=== PATIENT | female | born 1995 | race Caucasian/White ===

== ENCOUNTER 2024-03-21 07:49 | Outpatient (CLI) | payer MEDICAID, SELFPAY | END 2024-03-21 07:50 | disposition home or self-care (01) | PROVIDERS: Visit Provider Surgery | DX: L89.324 Pressure ulcer of left buttock, stage 4 (principal); L89.314 Pressure ulcer of right buttock, stage 4; Q05.4 Unspecified spina bifida with hydrocephalus; G82.50 Quadriplegia, unspecified; K59.2 Neurogenic bowel, not elsewhere classified; N31.8 Other neuromuscular dysfunction of bladder; Z93.3 Colostomy status; Z93.0 Tracheostomy status | CPT/HCPCS: 11042; 11045; G0463 ==

== ENCOUNTER 2024-03-28 08:09 | Outpatient (CLI) | payer MEDICAID, SELFPAY | END 2024-03-28 08:10 | disposition home or self-care (01) | LOC: WOUND 08:09 | PROVIDERS: Visit Provider Surgery | DX: L89.324 Pressure ulcer of left buttock, stage 4 (principal); L89.314 Pressure ulcer of right buttock, stage 4; Q05.4 Unspecified spina bifida with hydrocephalus; G82.20 Paraplegia, unspecified | CPT/HCPCS: 11042; 11045; G0463 ==

== ENCOUNTER 2024-04-11 08:20 | Outpatient (CLI) | payer MEDICAID, SELFPAY | END 2024-04-11 08:21 | disposition home or self-care (01) | PROVIDERS: Visit Provider Surgery | DX: L89.324 Pressure ulcer of left buttock, stage 4 (principal); L89.314 Pressure ulcer of right buttock, stage 4; Q05.4 Unspecified spina bifida with hydrocephalus; G82.20 Paraplegia, unspecified | CPT/HCPCS: 97597; 97598 ==

== ENCOUNTER 2024-04-25 08:07 | Outpatient (CLI) | payer MEDICAID, SELFPAY | END 2024-04-25 08:08 | disposition home or self-care (01) | LOC: WOUND 08:07 | PROVIDERS: Visit Provider Surgery | DX: L89.324 Pressure ulcer of left buttock, stage 4 (principal); L89.314 Pressure ulcer of right buttock, stage 4; Q05.4 Unspecified spina bifida with hydrocephalus; G82.20 Paraplegia, unspecified | CPT/HCPCS: 97597; 97605 ==

== ENCOUNTER 2024-05-02 08:05 | Outpatient (CLI) | payer MEDICAID, SELFPAY | END 2024-05-02 08:06 | disposition home or self-care (01) | LOC: WOUND 08:05 | PROVIDERS: Visit Provider Surgery | DX: L89.314 Pressure ulcer of right buttock, stage 4 (principal); L89.324 Pressure ulcer of left buttock, stage 4; Q05.4 Unspecified spina bifida with hydrocephalus; G82.20 Paraplegia, unspecified | CPT/HCPCS: 97597; 97605 ==

== ENCOUNTER 2024-05-09 08:04 | Outpatient (CLI) | payer MEDICAID, SELFPAY | END 2024-05-09 08:05 | disposition home or self-care (01) | LOC: WOUND 08:04 | PROVIDERS: Visit Provider Surgery | DX: L89.324 Pressure ulcer of left buttock, stage 4 (principal); L89.314 Pressure ulcer of right buttock, stage 4; Q05.4 Unspecified spina bifida with hydrocephalus; G82.20 Paraplegia, unspecified | CPT/HCPCS: 97597; 97605 ==

== ENCOUNTER 2024-05-16 08:20 | Outpatient (CLI) | payer MEDICAID, SELFPAY | END 2024-05-16 08:21 | disposition home or self-care (01) | LOC: WOUND 08:20 | PROVIDERS: Visit Provider Surgery | DX: L89.314 Pressure ulcer of right buttock, stage 4 (principal); L89.324 Pressure ulcer of left buttock, stage 4; Q05.4 Unspecified spina bifida with hydrocephalus; G82.20 Paraplegia, unspecified | CPT/HCPCS: 97597; 97605 ==

== ENCOUNTER 2024-05-23 07:53 | Outpatient (CLI) | payer MEDICAID, SELFPAY | END 2024-05-23 07:54 | disposition home or self-care (01) | PROVIDERS: Visit Provider Surgery | DX: L89.324 Pressure ulcer of left buttock, stage 4 (principal); L89.314 Pressure ulcer of right buttock, stage 4; Q05.4 Unspecified spina bifida with hydrocephalus; G82.20 Paraplegia, unspecified | CPT/HCPCS: 97597; 97605 ==

== ENCOUNTER 2024-05-30 07:47 | Outpatient (CLI) | payer MEDICAID, SELFPAY | END 2024-05-30 07:48 | disposition home or self-care (01) | LOC: WOUND 07:47 | PROVIDERS: Visit Provider Surgery | DX: L89.324 Pressure ulcer of left buttock, stage 4 (principal); L89.314 Pressure ulcer of right buttock, stage 4; Q05.4 Unspecified spina bifida with hydrocephalus; G82.20 Paraplegia, unspecified; Z99.3 Dependence on wheelchair | CPT/HCPCS: 97597; 97598; 97605 ==

== ENCOUNTER 2024-06-06 07:58 | Outpatient (CLI) | payer MEDICAID, SELFPAY | END 2024-06-06 07:59 | disposition home or self-care (01) | LOC: WOUND 07:58 | PROVIDERS: Visit Provider Surgery | DX: L89.324 Pressure ulcer of left buttock, stage 4 (principal); L89.314 Pressure ulcer of right buttock, stage 4; Q05.4 Unspecified spina bifida with hydrocephalus; G82.20 Paraplegia, unspecified; Z99.3 Dependence on wheelchair | CPT/HCPCS: 97597; 97598; 97605 ==

== ENCOUNTER 2024-06-13 07:42 | Outpatient (CLI) | payer MEDICAID, SELFPAY | END 2024-06-13 07:43 | disposition home or self-care (01) | LOC: WOUND 07:42 | PROVIDERS: Visit Provider Surgery | DX: L89.324 Pressure ulcer of left buttock, stage 4 (principal); L89.314 Pressure ulcer of right buttock, stage 4; Q05.4 Unspecified spina bifida with hydrocephalus; G82.20 Paraplegia, unspecified; Z99.3 Dependence on wheelchair | CPT/HCPCS: 97597; 97605 ==

== ENCOUNTER 2024-06-20 07:50 | Outpatient (CLI) | payer MEDICAID, SELFPAY | END 2024-06-20 07:51 | disposition home or self-care (01) | LOC: WOUND 07:50 | PROVIDERS: Visit Provider Surgery | DX: L89.324 Pressure ulcer of left buttock, stage 4 (principal); L89.314 Pressure ulcer of right buttock, stage 4; Q05.4 Unspecified spina bifida with hydrocephalus; G82.20 Paraplegia, unspecified | CPT/HCPCS: 97597; 97605 ==

== ENCOUNTER 2024-06-27 07:56 | Outpatient (CLI) | payer MEDICAID, SELFPAY | END 2024-06-27 07:57 | disposition home or self-care (01) | PROVIDERS: Visit Provider Nurse Practitioner Family | DX: L89.324 Pressure ulcer of left buttock, stage 4 (principal); L89.314 Pressure ulcer of right buttock, stage 4; Q05.4 Unspecified spina bifida with hydrocephalus; G82.20 Paraplegia, unspecified; Z99.3 Dependence on wheelchair | CPT/HCPCS: 11042; 97605; G0463 ==

== ENCOUNTER 2024-07-04 07:44 | Outpatient (CLI) | payer MEDICAID, SELFPAY | END 2024-07-04 07:45 | disposition home or self-care (01) | LOC: WOUND 07:44 | PROVIDERS: Visit Provider Nurse Practitioner Family | DX: L89.314 Pressure ulcer of right buttock, stage 4 (principal); L89.324 Pressure ulcer of left buttock, stage 4; Q05.4 Unspecified spina bifida with hydrocephalus; G82.20 Paraplegia, unspecified; Z99.3 Dependence on wheelchair | CPT/HCPCS: 11042; 97605 ==

== ENCOUNTER 2024-07-11 07:37 | Outpatient (CLI) | payer MEDICAID, SELFPAY | END 2024-07-11 07:38 | disposition home or self-care (01) | LOC: WOUND 07:37 | PROVIDERS: Visit Provider Nurse Practitioner Family | DX: L89.324 Pressure ulcer of left buttock, stage 4 (principal); L89.314 Pressure ulcer of right buttock, stage 4; Q05.4 Unspecified spina bifida with hydrocephalus; G82.20 Paraplegia, unspecified; Z99.3 Dependence on wheelchair | CPT/HCPCS: 11042; 11043; 97605 ==

== ENCOUNTER 2024-07-18 07:42 | Outpatient (CLI) | payer MEDICAID, SELFPAY | END 2024-07-18 07:43 | disposition home or self-care (01) | LOC: WOUND 07:42 | PROVIDERS: Visit Provider Nurse Practitioner Family | DX: L89.324 Pressure ulcer of left buttock, stage 4 (principal); L89.314 Pressure ulcer of right buttock, stage 4; Q05.4 Unspecified spina bifida with hydrocephalus; G82.20 Paraplegia, unspecified; Z99.3 Dependence on wheelchair | CPT/HCPCS: 11042; 97605 ==

== ENCOUNTER 2024-07-25 07:38 | Outpatient (CLI) | payer MEDICAID, SELFPAY | END 2024-07-25 07:39 | disposition home or self-care (01) | LOC: WOUND 07:38 | PROVIDERS: Visit Provider Nurse Practitioner Family | DX: L89.324 Pressure ulcer of left buttock, stage 4 (principal); L89.314 Pressure ulcer of right buttock, stage 4; Q05.4 Unspecified spina bifida with hydrocephalus; G82.20 Paraplegia, unspecified; Z99.3 Dependence on wheelchair | CPT/HCPCS: 11042; 97605 ==

== ENCOUNTER 2024-08-01 08:51 | Outpatient (CLI) | payer MEDICAID, SELFPAY | END 2024-08-01 08:52 | disposition home or self-care (01) | PROVIDERS: Visit Provider Nurse Practitioner Family | DX: L89.324 Pressure ulcer of left buttock, stage 4 (principal); L89.314 Pressure ulcer of right buttock, stage 4; Q05.4 Unspecified spina bifida with hydrocephalus; G82.20 Paraplegia, unspecified; Z99.3 Dependence on wheelchair | CPT/HCPCS: 11043; 15271; 97605; Q4151 ==

== ENCOUNTER 2024-08-08 07:47 | Outpatient (CLI) | payer MEDICAID, SELFPAY | END 2024-08-08 07:48 | disposition home or self-care (01) | LOC: WOUND 07:48 | PROVIDERS: Visit Provider Nurse Practitioner Family | DX: L89.324 Pressure ulcer of left buttock, stage 4 (principal); L89.314 Pressure ulcer of right buttock, stage 4; Q05.4 Unspecified spina bifida with hydrocephalus; G82.20 Paraplegia, unspecified; Z99.3 Dependence on wheelchair | CPT/HCPCS: 11042; 15271; 97605; Q4151 ==

== ENCOUNTER 2024-08-17 07:59 | Outpatient (CLI) | payer MEDICAID, SELFPAY | END 2024-08-17 08:00 | disposition home or self-care (01) | LOC: WOUND 07:59 | PROVIDERS: Visit Provider Nurse Practitioner Family | DX: L89.314 Pressure ulcer of right buttock, stage 4 (principal); L89.324 Pressure ulcer of left buttock, stage 4; Q05.4 Unspecified spina bifida with hydrocephalus; G82.20 Paraplegia, unspecified; Z99.3 Dependence on wheelchair | CPT/HCPCS: 11042; 97605 ==

== ENCOUNTER 2024-08-24 07:54 | Outpatient (CLI) | payer BC, MEDICAID, SELFPAY ==
--- OUTSIDE RECORDS SUMMARY | 2024-08-23 16:41 | XMS_ITS | Clinical Summary ---
Author Organization [facility] Address [place], [place] [address] Care Team Providers Care Engine Turner Name Role Phone Sheri Yoo MOTOR AND CHASSIS INSPECTOR Unavailable [phone] Sophia Huertas Primary Care Provider Unavaila ble Allergies Active Allergy Reactions Criticality Noted Date Comments Latex 08/13/2008 Vancomycin *Unknown 02/28/2020 Medications DILANTIN INFATABS 50 MG CHEWABLE 1 tab in am and 2 tabs in evening 0 Active OXYBUTYNIN CHLORIDE 5 MG TAB 1 tab bid 0 Ac tive ALBUTEROL SULFATE 2.5 MG/3 ML NEB SOLUTION None Entered 0 Active VASOTEC 5 MG TAB 1 tab orally daily Active CLONIDINE 0.1 MG TAB 1 tab orally daily Active CIPROFLOXACIN HCL (CIPRO ORAL) Take 1 Tab by mouth 2 times daily. Active multivitamin with iron-mineral tablet ADMINISTER 1 TABLET INTO FEEDING TUBE DAILY 10/12/19 22 Active cefuroxime axetil (CEFTIN) 500 mg tablet PLEASE SEE ATTACHED FOR DETAILED DIRECTIONS 07/10/20 21 Active cetirizine (ZYRTEC) 1 mg/mL solution TAKE 10 ML VIA GASTROSTOMY TUBE DAILY 02/23/20 22 Active ciprofloxacin HCl (CIPRO) 500 mg tablet TAKE 1 TABLET BY MOUTH TWICE DAILY. USE AT FIRST SIGN OF UTI. CALL CLINIC IF INITIATING FOR UA ORDERS 11/15/19 Active cyproheptadine (PERIACTIN) 4 mg tablet ADMINISTER 4 MG INTO FEEDING TUBE THREE TIMES A DAY. 02/24/20 Active erythromycin ethylsuccinate (E.E.S.) 400 mg/5 mL suspension ADMINISTER 2 ML INTO FEEDING TUBE THREE TIMES A DAY. 02/23/20 Active NexIUM Packet 40 mg grps 1 PACKET (40 MG) BY GT ROUTE DAILY. TAKE ACCORDING TO DIRECTIONS ON PACKAGE 01/28/20 Active famotidine (PEPCID) 40 mg/5 mL suspension ADMINISTER 2.5 ML INTO FEEDING TUBE TWO TIMES A DAY. 02/23/20 Active ibuprofen (MOTRIN; ADVIL) 100 mg/5 mL suspension Administer 300 mg through feeding tube every 6 hours if needed. 07/30/20 Active ipratropium (ATROVENT) 0.02 % nebulizer solution 03/09/20 Active ketotifen (ZADITOR) 0.025 % (0.035 %) ophthalmic solution 1 Drop. 06/23/20 Active levalbuterol (XOPENEX) 0.63 mg/3 mL nebulization INHALE 1 AMPULE BY NEBULIZATION EVERY 8 HOURS NEEDED FOR SHORTNESS OF BREATH, DESATURATIONS 02/23/20 Active zinc sulfate 50 mg zinc (220 mg) capsule TAKE 1 CAPSULE INSTRUCTED DAILY. 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 04/29/2022 Impaired mobility and activities of daily living 04/29/2022 Neurogenic bowel 04/29/2022 Neurogenic bladder 04/29/2022 Dysphagia 04/29/2022 Dysarthria 04/29/2022 Paraplegia 04/29/2022 S/P ventriculoperitoneal shunt 03/03/2022 Overview (03/17/2022): 06/02/2000 Medos at 60 04/09/2003 Medos at 60 06/26/2003 Medos at 80 (well decompressed ventricles, increased from 60) 12/2019 Medos to 100 (with revision) Encounters Date Type Department Care Team Description 07/25/2024 Patient Outreach [facility] [address] [place], [place] [id number] Laura Rosado [facility] Care Coordination- [facility] (UTR) 07/25/2024 Patient Outreach [facility] [address] [place] [address] Sheri Yoo, [facility] Care Coordination- [facility] (HRA - Unable to Reach ) 07/04/2024 Patient Outreach [facility] [address] [place] [address] Sheri Yoo, [facility] Care Coordination- [facility] (Call to schedule HRA) from Last 3 Months Immunizations Name Administration Dates Next Due DTP-HIB 05/14/1997,1996,1996 DTaP 06/27/2001 DTaP-HIB (TriHIBIT) 09/04/1997,05/14/1997,1996,1996 Hepatitis B (Peds) 05/14/1997,1996, 996 Inactivated Polio Vaccine 06/27/2001,05/14/1997 Influenza A (H1N1), Inactivated 06/28/2009 Influenza Virus, Unspecified 04/23/2009, 07/19/2008,06/06/2007,09/14/2006, 08/05/1998 Influenza, IIV3 (Age >=3 years) 04/23/20 09,07/19/2008,06/06/2007,09/14/2006, 08/05/1998 MMR 06/27/2001,09/04/1997 Oral Polio Vaccine 1996,1996 Rotavirus Pentavalent (ROTATEQ) 08/05/1998 Rotavirus, Unspecified 08/05/1998 Tdap 04/23/2009 Varicella Vaccine 07/19/2008,06/05/1998 Family History Medical History Relation Name Comments Good Health Father Good Health Mother Relation Name Status Comments Father Mother Social History Tobacco Use Types Packs/Day Years Used Date Smoking Tobacco: Never Smokeless Tobacco: Never Alcohol Use Standard Drinks/Week Comments No 0 (1 standard drink = 0.6 oz pur e alcohol) Social Connections Answer Date Recorded Frequency of Communication with Friends and Fami ly Not on file 03/17/2022 Comments Unknown Sex and Gender Information Value Date Recorded Sex Assigned at Not on file 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 Gender Identity Not on file Sexual Orientation Not on file Obstetrics History Last Filed Vital Signs Vital Sign Reading Time Taken Comments Blood Pressure 105/71 04/29/2022 8:02 AM CDT Pulse 88 04/29/2022 8:02 AM CDT Temperature 36.7 C (98 F) 03/17/2022 1:01 PM CDT Respiratory Rate 22 05/09/2010 9:28 PM CDT Oxygen Saturation 97% 04/29/2022 8:02 AM CDT Inhaled Oxygen Concentration - - Weight 45.4 kg (100 lb) 03/17/2022 1:01 PM CDT Height 152.4 cm (5') 03/17/2022 1:01 PM CDT Body Mass Index 19.53 03/17/2022 1:01 PM CDT Plan of Treatment Health Maintenance Due Date Last Done Comments Depression screening for age 12+ 2008 HIV for age 15-65 2011 Hepatitis C screening for age 18-79 2014 Pap test for age 21-65 2017 Tetanus booster 04/23/2019 04/23/2009 BMI (ht and wt on same day) for age 18+ 03/17/2023 03/17/2022 COVID-19 vaccine series (2023- season) 2024 Influenza for age 9-49 04/22/2024 9, 04/23/2009, 04/23/2009, Additional history exists Tdap Completed 04/23/2009 Pneumococcal series for age 6-49 Aged Out No longer eligible based on patient's age to complete this topic Goals Goal Patient Goal Type Associated Problems Recent Progress Patient-Stated? Author [facility] CC - UTR General No Mahad, [place] Note: Goal Statement: Pham will be offered a health risk assessment as evidenced by documentation of attempted outreach. Start date: 07/22/23 Goal end date: 07/21/24 Goal priority: High Initial contact attempts documented : unsuccessful welcome call documented in note dated 07/18/23 Challenges to goal achievement:No answer, left voicemail requesting return call. Member not responding to calls or correspondence. UTR Actions: Continue attempts to reach member at number of record Outreach done to legal guardian/emergency contact.: Outreach done to both parents who are legal guardian and emergency contacts. Conducted other research (such as Health Plan claims reports, [place] or [place] review): Checked [place] and reviewed Epic records. Primary Care Provider confirmed: Yes Name of PCP: aMttie Huretas MD Provider Engagement Letter sent date: 07/22/23 Sent method: (EMR/mail/fax/n/a) Mail Member Unable to Reach Letter sent date: 07/22/23 Sent method: (EMR/mail/fax/n/a) Mail PLAN: Attempt outreach/engagement in 6 months, Timeline for next outreach scheduled in [facility], and HRA due- administrative activity completed Continue outreach to contact and engage member per health plan requirement. Linda Tobin .................... 07/22/2023 9:52 AM Biannual Review Contact Attempts Date Comments - include contact type Continue attempts to reach member via phone Outreach to legal guardian/emergency contact Outreach to primary care clinic/provider Outreach to pharmacy or other community provider Contacted waiver case finisher Contacted financial worker Conducted other research (such as health plan claims reports, [place]IT[place] or Epic record review) HRA scheduled Updated next outreach date #1 01/12/24 Attempted to reach Pham for biannual outreach and HRA scheduling, but was unsuccessful: Called member: call not answered, left voicemail. Actions Taken/Plan: Await return call and/or continue outreach attempts. Linda Tobin..........01/12/2024 10:31 AM #2 01/17/24 Called and spoke with Pham's mother and legal guardian, Negar today for biannual outreach. Introduced myself and reviewed care coordination program benefits. Member accepted video HRA (was offered but declined in-person HRA). Scheduled as follows: Date/Time: 02/14/24, 9:00 AM Location: Virtual (Teams Video Visit) Other Pertinent Information (if applicable): Parents, Negar and Mauro Kuo are legal guardians. HRA will be completed with Negar, , [email or web address]. Negar works until 5 pm, will make this day and time work. Appointment Added to Assignment Workbook (Care Guides only): Yes Actions Taken/Plan: Provided CG's contact information. Confirmed member's contact and demographic information. For new members: Informed member/guardian that assigned CC will be making introduction/HRA confirmation call. Initiated, reviewed, & updated [facility] chart. Added entry to [facility] monthly activity log. Linda Mahad..........01/17/2024 4:19 PM #3 02/14/2024 Prepared and sent UTR and change in CC letter to member and her mother/guardian. Sent provider engagement letter to PCP BEN Soto .................... 02/14/2024 9:20 AM #4 07/25/2024 Remains unable to reach BEN Soto .................... 07/25/2024 11:[address] [place] [address] Care Teams Engine Turner Relationship Specialty Start Date End Date Sophia Huertas PCP - General Family Practice 02/14/24 Sheri Yoo LSW [address], [place] [id number] [facility] Coordination Clinical Research Monitor 01/24/24
--- OUTSIDE RECORDS SUMMARY | 2024-08-23 16:41 | XMS_ITS | Encounter Summary ---
Author Organization [employer] Address [address] [place] [address] Care Team Providers Care Director Of Collections Name Role Phone Mattie Huertas MD Primary Care Provider Reason for Visit * Reason Comments Refill zinc sulfate (ZINCAT E) 220 (50 Zn) MG capsule [Pharmacy Med Name: ZINC SULFATE 220 MG CAPSULE]; DILANTIN-125 125 MG/5ML suspension [Pharmacy Med Name: DILANTIN 125 MG/5 ML SUSP] Encounter Details Date Type Department Care Team (Late st Contact Info) Description 08/01/2024 Refill [facility] [address] [facility] [place] [address] Mattie Huertas MD [address] [facility] [address] Refill (zinc sulfate (ZINCATE) 220 (50 Zn) MG capsule [Pharmacy Med Name: ZINC SULFATE 220 MG CAPSULE]; DILANTIN-125 125 MG/5ML suspension [Pharmacy Med Name: DILANTIN 125 MG/5 ML SUSP]) Social History Tobacco Use Types Packs/Day Years Used Date Smoking Tobacco: Never Smokeless Tobacco: Never Alcohol Use Standard Drinks/Week Comments Never 0 (1 standard drink = 0.6 oz pur e alcohol) Sex and Gender Information Value Date Recorded Sex Assigned at Not on file Gender Identity Not on file Sexual Orientation Not on file documented as of this encounter Nursing Notes * Mattie Huertas MD - 08/03/2024 10:40 AM CST Please call and let patient know that approval was sent but appointment is needed before additionalrefills. TH EDUCATION DIRECTOR * Tish Blancas RN - 08/03/2024 9:13 AM CST Further Assistance Needed on Refill from Clinician RN reviewed. Patient due for Lab(s). Review pended order for accuracy and sign if appropriate, Clinician to order lab(s) and document ifpatient is due for lab only visit or office visit and lab, and Route to Front Line to schedule appointment Requested Prescriptions Pending Prescriptions Disp Refills zinc sulfate (ZINCATE) 220 (50 Zn) MG capsule [Pharmacy Med Name: ZINC SULFATE 220 MG CAPSULE] 90 Capsule 0 Sig: Take 1 Capsule (220 mg) as instructed daily. DILANTIN-125 125 MG/5ML suspension [Pharmacy Med Name: DILANTIN 125 MG/5 ML SUSP] 240 mL Sig: TAKE 2-4 ML BY MOUTH TWICE A DAY TH EDUCATION DIRECTOR documented in this encounter Plan of Treatment Upcoming Encounters Date Type Department Care Team (Late st Contact Info) Description 09/06/2024 12:30 PM HEALTH EDUCATION DIRECTOR Telemedicine [facility] [address] [place] [address] [place] [phone] Mattie Huertas MD [address] [place] [address] [place] [phone] documented as of this encounter Visit Diagnoses Not on filedocumented in this encounter Care Teams Director Of Collections Relationship Specialty Start Date End Date Mattie Huertas MD [facility] [address] [id number] PCP - General Family Practice 07/04/23 documented as of this encounter
--- OUTSIDE RECORDS SUMMARY | 2024-08-23 16:41 | XMS_ITS | Clinical Summary ---
[facility] Address [address] [place] [address] Care Team Providers Care Electrical Controls Engineer Name Role Phone Mattie Huertas MD Primary Care Provider [phone] Source Comments You are receiving this document as you are listed as the primary care provider,follow-up provider, or the patient has been referred to you for consultation.This is in compliance with the Medicare and[facility] EHR Incentive Program,which states Providers who transition their patient to another setting of careor provider of care or refers their patient to another provider of care shouldprovide summary care record for each transition of care or referral. SCHEDit Allergies Active Allergy Reactions Criticality Noted Date Comments Latex 02/06/2011 PN: Converted from LW Latex Sensitivity Flag Review Contrast Media 09/06/2007 PN: LW CM1: >>> NO CONTRAST ADVERSE REACTION <<< Reaction : Review Food Intolerance 09/06/2007 PN: LW FI1: NKA Vancomycin 02/28/2020 Medications Medication Sig Dispensed Refills Start Date End Date Status DRUG NOT IN COMPUTER LW Comment:60cc syringes catheter tip LW Addl Instr:these must fit catheters that have a cath tip or funnel tip 11 0 Active drug not in computer Pneumatic compression device bilateral LE 1 Each 9 Active Acidophilus Lactobacillus CAPS 1 Capsule by Gastric Tube route two times a day. 60 Capsule 5 0 Active ibuprofen (ADVIL) 100 MG/5ML suspension Administer 15 mL into feeding tube every 6 hours as needed for Pain or Fever. Not to exceed 4 doses in 24 hours 118 mL 11 0 Active Nutritional Supplements (FIBERSOURCE HN) 5 cans daily via GT. 100 ml an hour 300 Each 4 3 Active famotidine (PEPCID) 40 MG/5ML suspensionIndicati ons:Gastroesophage al reflux disease, unspecified whether esophagitis present,Gastrostom y tube dependent (HRC) Administer 2.5 mL (20 mg) into feeding tube two times a day. 450 mL 3 3 Active ipratropium (ATROVENT) 0.02 % nebulizer solutionIndication s:Chronic respiratory failure with hypoxia and hypercapnia (HRC) Inhale 2.5 mL (0.5 mg) every 4 hours as needed for Wheezing. 360 Each 3 3 Active oxyBUTYnin (DITROPAN) 5 MG tabletIndications: Neurogenic bladder Take 2 Tablets (10 mg) by mouth two times a day. 360 Tablet 3 3 Active nystatin (MYCOSTATIN) 797070 UNIT/GM powderIndications: Paraplegia (HRC) Apply 0.0001 g (1 Units) topically daily. 60 g 1 3 Active Multiple Vitamin (DAILY-SARAVANAN MULTIVITAMIN) TABS ADMINISTER 1 TABLET INTO FEEDING TUBE DAILY 90 Tablet 3 4 Active LORATADINE CHILDRENS 5 MG/5ML oral solutionIndication s:Chronic respiratory failure with hypoxia and hypercapnia (HRC) ADMINISTER 10 ML (10 MG) INTO FEEDING TUBE DAILY. 900 mL 2 4 Active albuterol 5 mg/mL, 0.5%, (PROVENTIL) (5 MG/ML) 0.5% nebulizer solution Inhale 0.5 mL (2.5 mg) every 4 hours as needed for Wheezing. 80 mL 4 Active levalbuterol (XOPENEX) 0.63 MG/3ML nebulizer solutionIndication s:Chronic respiratory failure with hypoxia and hypercapnia (HRC) Inhale 3 mL (0.63 mg) every 8 hours as needed for Wheezing. 270 mL 10/21/202 4 Active albuterol 2.5 mg/3 mL, 0.083%, (PROVENTIL) nebulizer solution 1 Each (2.5 mg) by Nebulization route every 6 hours as needed for Wheezing. 90 mL 1 4 Active albuterol 2.5 mg/3 mL, 0.083%, (PROVENTIL) nebulizer solutionIndication s:Chronic respiratory failure with hypoxia (HRC) 1 Each (2.5 mg) by Nebulization route daily as needed for Wheezing or Other. Up to 6 doses daily. 540 mL 1 4 Active DILANTIN-125 125 MG/5ML suspension TAKE 2-4 ML BY MOUTH TWICE A DAY 240 mL 4 Active zinc sulfate (ZINCATE) 220 (50 Zn) MG capsule TAKE 1 CAPSULE (220 MG) INSTRUCTED DAILY. 90 Capsule 4 Active esomeprazole (NEXIUM) 40 MG packetIndications: Gastroesophageal reflux disease, unspecified whether esophagitis present 1 PACKET (40 MG) BY GT ROUTE TWO TIMES A DAY. 180 Packet 4 Active cyproheptadine (PERIACTIN) 4 MG tablet ADMINISTER 4 MG INTO FEEDING TUBE THREE TIMES A DAY. 270 Tablet 3 4 Active ciprofloxacin (CIPRO) 500 MG tabletIndications: Neurogenic bladder GIVE 1 TABLET (500 MG) VIA FEEDING TUBE TWO TIMES A DAY. START AT FIRST SIGN OF UTI 20 Tablet 1 4 Active cefuroxime (CEFTIN) 500 MG tabletIndications: Chronic respiratory failure with hypoxia and hypercapnia (HRC) GIVE 1 TABLET VIA FEEDING TUBE TWO TIMES A DAY. INITIATE AT FIRST SIGN OF A RESPIRATORY INFECTION AND CALL CLINIC IF NEED TO INITIATE 20 Tablet 1 4 Active cefuroxime (CEFTIN) 500 MG tabletIndications: Chronic respiratory failure with hypoxia and hypercapnia (HRC) Administer 1 Tablet (500 mg) into feeding tube two times a day. TAKE 1 TAB 2 TIMES A DAY. INITIATE AT FIRST SIGN OF A RESPIRATORY INFECTION AND CALL CLINIC IF NEED TO INITIATE 20 Tablet 1 3 08/21/20 24 Discontinued ciprofloxacin (CIPRO) 500 MG tabletIndications: Neurogenic bladder Administer 1 Tablet (500 mg) into feeding tube two times a day. TAKE 1 TABLET TWICE DAILY AT FIRST SIGN OF UTI 20 Tablet 1 3 08/21/20 24 Discontinued cyproheptadine (PERIACTIN) 4 MG tabletIndications: Spina bifida with hydrocephalus, lumbar region (HRC) Administer 4 mg into feeding tube three times a day. 270 Tablet 3 3 08/01/20 24 Discontinued DILANTIN 125 MG/5ML suspensionIndicati ons:Spina bifida with hydrocephalus, lumbar region (HRC),Seizure disorder (HRC) TAKE 2-4 ML BY MOUTH TWICE A DAY 711 mL 3 3 08/03/20 24 Discontinued esomeprazole (NEXIUM) 40 MG packetIndications: Gastroesophageal reflux disease, unspecified whether esophagitis present 1 Packet (40 mg) by GT route two times a day. 180 Packet 3 3 08/03/20 24 Discontinued zinc sulfate (ZINCATE) 220 (50 Zn) MG capsule Take 1 Capsule (220 mg) as instructed daily. 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 02/14/2020 Overview (02/14/2020): Placed September 2019 due to sacrococcygeal decubitus ulcer History of methicillin resistant Staphylococcus aureus 08/27/2019 Overview (02/04/2022): Tracheal aspirate Tracheostomy in place 05/11/2012 Paralysis of vocal cords and larynx, unspecified 06/22/2007 Overview (04/13/2017): Vocal Cord Paralysis NOS Neurogenic bladder 02/27/2004 Overview (11/05/2020): LW Onset: 10Mwu18 Neurogenic bowel 02/27/2004 Overview (03/25/2016): LW Onset: 62Zpk91 Paraplegia 02/27/2004 Overview (03/25/2016): LW Modifier: wheelchair mainly LW Onset: 20Mvn35 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 Overview (02/04/2022): W severe chiari II malformation s/p [employer] shunt placement Seizure disorder 02/27/2004 Overview (11/05/2020): LW Modifier: decompressed june LW Onset: 60Sma70 ; Arnold Chiari Malformation Disorder of eye movements 02/27/2004 Overview (04/13/2017): LW Modifier: repair december 1996 LW Onset: 22Mwb23 ; Strabismus NOS Sleep apnea 12/02/2003 Overview (04/13/2017): Obstructive Sleep Apnea Hypopnea Resolved Problems Problem Noted Date Diagnosed Date Resolved Date Pressure injury of buttock, stage 4 11/05/2020 02/04/2022 Recurrent UTI 11/05/2020 05/06/2021 Decubitus ulcer due to spina bifida 02/14/2020 02/04/2022 Tracheobronchitis 02/14/2020 08/14/2020 Overview (02/14/2020): Polymicrobial Abdominal pain 05/11/2012 08/20/2021 Overview (04/13/2017): Abdominal pain, unspecified site Closed fracture of tibia 12/22/2004 Overview (04/13/2017): LW Onset: 59Hrl50 ; Fx Tibia NOS Closed Encounters Date Type Department Care Team Description 08/23/2024 Refill [facility] [address] [facility] [place] [address] Mattie Huertas MD Refill (ipratropium (ATROVENT) 0.02 % nebulizer solution [Pharmacy Med Name: IPRATROPIUM BR 0.02% SOLN]) 08/21/[address] [address] Mattie Huertas MD Refill (cefuroxime (CEFTIN) 500 MG tablet [Pharmacy Med Name: CEFUROXIME AXETIL 500 MG TAB]; ciprofloxacin (CIPRO) 500 MG tablet [Pharmacy Med Name: CIPROFLOXACIN HCL 500 MG TAB]) 08/13/2024 E-Visit [address] [address] Mychart, Generic Provider 08/10/2024 E-Visit [address] [address] Mychart, Generic Provider 08/01/[address] [address] Mattie Huertas MD Refill (cyproheptadine (PERIACTIN) 4 MG tablet [Pharmacy Med Name: CYPROHEPTADINE 4 MG TABLET]) 08/01/[address] [address] Mattie Huertas MD Refill (zinc sulfate (ZINCATE) 220 (50 Zn) MG capsule [Pharmacy Med Name: ZINC SULFATE 220 MG CAPSULE]; DILANTIN-125 125 MG/5ML suspension [Pharmacy Med Name: DILANTIN 125 MG/5 ML SUSP]) 08/01/[address] [address] Mattie Huretas MD Refill (NEXIUM 40 MG packet [Pharmacy Med Name: NEXIUM DR 40 MG PACKET]) 07/08/[address] [address] Mattie Huertas MD Prior Authorization For Medication (LEVALBUTEROL 0.63% MG/3 ML CHIKA) 06/27/[address] [address] Mattie Huertas MD Medication Questions 06/20/[address] [address] Mattie Huertas MD Patient Calling Back 06/13/[address] [address] Mattie Huertas MD Prior Authorization For Medication (Albuterol) 06/11/[address] [address] Mattie Huertas MD Refill (albuterol 5 mg/mL, 0.5%, (PROVENTIL) (5 MG/ML) 0.5% nebulizer solution) 06/11/[address] [address] Mattie Huertas MD Refill (levalbuterol (XOPENEX) 0.63 MG/3ML nebulizer solution) from Last 3 Months Immunizations Name Administration Dates Next Due DTP-Hib (Tetramune) 05/14/1997,1996,1995 DTaP 06/27/2001 DTaP/Hib 09/04/1997, 7,1996,08/06/19 96 Flu Vac (3+ yrs) 04/23/2009, 8,06/06/2007,09/14/19 07 Flu Vac Preserv Free (3+yrs) 04/23/2009, 07/19/2008,06/06/2007,09/14/19 07 Flu Vac Preserv Free (6-35 mo) 08/05/1998 H1n1 Miv Sanofi 3+ Yr (Injected) 06/28/2009 HepB Ped/Adol (0-18 yrs) 05/14/1997,1996,1 10/07/1995 IPV (Polio) 06/27/2001,05/14/1997 Influenza, Unspecified Formulation 08/05/1998 MMR 06/27/2001,09/04/1997 OPV, Trivalent (Orimune or tOPV) 1996,07/22 Rotavirus, Unspecified Formulation 08/05/1998 TDAP (BOOSTRIX) 04/23/2009 Varicella 07/19/2008,06/05/1998 Social History Tobacco Use Types Packs/Day Years Used Date Smoking Tobacco: Never Smokeless Tobacco: Never Alcohol Use Standard Drinks/Week Comments Never 0 (1 standard drink = 0.6 oz pur e alcohol) Sex and Gender Information Value Date Recorded Sex Assigned at Not on file Gender Identity Not on file Sexual Orientation Not on file Last Filed Vital Signs Vital Sign Reading Time Taken Comments Blood Pressure 109/76 07/27/2023 7:04 AM MIGRANT LEADER Pulse 94 07/27/2023 7:04 AM MIGRANT LEADER Temperature 36.8 C (98.2 F) 03/01/2014 2:06 PM CDT Respiratory Rate 20 03/01/2014 2:06 PM CDT Oxygen Saturation - - Inhaled Oxygen Concentration - - Weight 49.9 kg (110 lb) 02/04/2022 5:28 PM CDT r eported Height 142.2 cm (4' 8) 02/04/2022 5:28 PM CDT Body Mass Index 24.66 02/04/2022 5:28 PM CDT Plan of Treatment Upcoming Encounters Date Type Department Care Team (Late st Contact Info) Description 09/06/2024 12:30 PM MIGRANT LEADER Telemedicine [facility] Medicine [address] [place] [address] Mattie Huertas MD [address] [place] [address] Health Maintenance Due Date Last Done Comments Cervical Cancer Screening Due 1996 Hep C Screening (Preventive Services) 1996 DTaP/Tdap/Td (6 - Tdap) 04/23/2019 04/23/20 09, 06/27/2001, 09/04/1997, Additional history exists Adult Preventive Visit 02/05/2024 02/04/2022 COVID-19 Vaccine ( season) 2024 Influenza (#1) 2024 04/23/2009, 09/2008, 07/19/2008, Additional history exists Zoster/Shingles (1 of 2) 2046 HepB Completed 05/14/1997, 10/1996, 1996 Hib Completed 09/04/1997, 04/23, 05/14/1997, Additional history exists IPV (Polio) Completed 06/27/2001, 04/23, 1996, Additional history exists Varicella Completed 07/19/2008, 06/05/1998 Chlamydia Discontinued 02/04/2022 (Completed) HIV Screening (Preventive Services) Completed 02/04/2022 (Completed) HPV Vaccine Aged Out No longer eligi ble based on patient's age to complete this topic HepA Aged Out No longer eligi ble based on patient's age to complete this topic MCV4 Aged Out No longer eligi ble based on patient's age to complete this topic Pneumococcal Aged Out No longer eligi ble based on patient's age to complete this topic Care Teams Electrical Controls Engineer Relationship Specialty Start Date End Date Mattie Huertas MD [address] [place] [address] [place] [address] PCP - General Family Practice 07/04/23
--- OUTSIDE RECORDS SUMMARY | 2024-08-23 16:41 | XMS_ITS | Encounter Summary ---
Author Organization [facility] Address [address] [place] [address] Care Team Providers Care Aviation Medicine Specialist Name Role Phone Katelyn Mendez MD Primary Care Provider [phone] Reason for Visit * Reason Comments Refill cefuroxime (CEFTIN) 500 MG tablet [Pharmacy Med Name: CEFUROXIME AXETIL 500 MG TAB]; ciprofloxacin (CIPRO) 500 MG tablet [Pharmacy Med Name: CIPROFLOXACIN HCL 500 MG TAB] Encounter Details Date Type Department Care Team (Late st Contact Info) Description 08/21/2024 Refill [facility] [address] [facility] [place] [address] Katelyn Mendez MD [address] [place] [address] Refill (cefuroxime (CEFTIN) 500 MG tablet [Pharmacy Med Name: CEFUROXIME AXETIL 500 MG TAB]; ciprofloxacin (CIPRO) 500 MG tablet [Pharmacy Med Name: CIPROFLOXACIN HCL 500 MG TAB]) Social History Tobacco Use Types Packs/Day Years Used Date Smoking Tobacco: Never Smokeless Tobacco: Never Alcohol Use Standard Drinks/Week Comments Never 0 (1 standard drink = 0.6 oz pur e alcohol) Sex and Gender Information Value Date Recorded Sex Assigned at Not on file Gender Identity Not on file Sexual Orientation Not on file documented as of this encounter Nursing Notes * Kendall Castro Xrwcomm - 08/21/2024 10:46 AM CST cefuroxime (CEFTIN) 500 MG tablet [Pharmacy Med Name: CEFUROXIME AXETIL 500 MG TAB] Medication started: 12/26/2018 Last ordered by KATELYN MENDEZ E: 07/27/2023 (391 days ago) QTY: 20, Refills: 1, Sig: administer 1 tablet (500 mg) into feeding tube two times a day. take 1 tab 2 times a day. initiate at first sign of a respiratory infection and call clinic if need to initiate (changed) -> Unable to determine if sig has changed, review required. -> Medication cannot be delegated. Last qualifying visit: 08/24/2023 (with KATELYN MENDEZ) Next scheduled visit: 09/06/2024 (with KATELYN MENDEZ) [employer] Embedded Refills, Reference: [id number], 08/21/2024 10:46:42 AM Yaniv CHOUDHARY: CHRISTINA Refill [facility] - Primary Care [[id number]] ([id number]) ciprofloxacin (CIPRO) 500 MG tablet [Pharmacy Med Name: CIPROFLOXACIN HCL 500 MG TAB] Medication started: 12/26/2018 Last ordered by KATELYN MENDEZ: 07/27/2023 (391 days ago) QTY: 20, Refills: 1, Sig: administer 1 tablet (500 mg) into feeding tube two times a day. take 1 tablet twice daily at first sign of uti (changed) -> Unable to determine if sig has changed, review required. -> Medication cannot be delegated. Last qualifying visit: 08/24/2023 (with KATELYN MENDEZ) Next scheduled visit: 09/06/2024 (with KATELYN MENDEZ) [employer] Embedded Refills, Reference: [id number], 08/21/2024 10:46:42 AM Shade CHOUDHARY Central[facility] - Primary Care [[id number]] ([id number]) ROLL CALENDER OPERATOR documented in this encounter Plan of Treatment Upcoming Encounters Date Type Department Care Team (Late st Contact Info) Description 09/06/2024 12:30 PM FOUR ROLL CALENDER OPERATOR Telemedicine [place] [place] [phone] Katelyn Mednez MD [address] [place] [address] [place] [address] documented as of this encounter Visit Diagnoses Diagnosis Neurogenic bladder Neurogenic bladder, NOS Chronic respiratory failure with hypoxia and hypercapnia (HRC) documented in this encounter Care Teams Aviation Medicine Specialist Relationship Specialty Start Date End Date Katelyn Mendez MD [address] [place] [address] PCP - General Family Practice 07/04/23 documented as of this encounter
--- OUTSIDE RECORDS SUMMARY | 2024-08-23 16:41 | XMS_ITS | Encounter Summary ---
Author Organization [facility] Address [address] [place] [address] Care Team Providers Care Manager International Name Role Phone Mattie Huertas MD Primary Care Provider Encounter Details Date Type Department Care Team (Late st Contact Info) Description 08/13/2024 E-Visit [address] [address] Mychart, [facility] [place] [address] Social History Tobacco Use Types Packs/Day Years Used Date Smoking Tobacco: Never Smokeless Tobacco: Never Alcohol Use Standard Drinks/Week Comments Never 0 (1 standard drink = 0.6 oz pur e alcohol) Sex and Gender Information Value Date Recorded Sex Assigned at Not on file Gender Identity Not on file Sexual Orientation Not on file documented as of this encounter Plan of Treatment Upcoming Encounters Date Type Department Care Team (Late st Contact Info) Description 09/06/2024 12:30 PM CRAPS DEALER Telemedicine [address] [place] [address] Mattie Huertas MD [address] [place] [address] [place] [address] documented as of this encounter Visit Diagnoses Not on filedocumented in this encounter Care Teams Manager International Relationship Specialty Start Date End Date Mattie Huertas MD [address] [place] [address] PCP - General Family Practice 07/04/23 documented as of this encounter
--- OUTSIDE RECORDS SUMMARY | 2024-08-23 16:41 | XMS_ITS | Encounter Summary ---
Author Organization [facility] Address [address] [place] [address] Care Team Providers Care Director Of Women'S Services Name Role Phone Mattie Huertas MD Primary Care Provider [phone] Reason for Visit * Reason Comments Refill ipratropium (ATROVEN T) 0.02 % nebulizer solution [Pharmacy Med Name: IPRATROPIUM BR 0.02% SOLN] Encounter Details Date Type Department Care Team (Late st Contact Info) Description 08/23/[address] [place] [phone] Mattie Huertas MD [address] [place] [address] [place] [phone] Refill (ipratropium (ATROVENT) 0.02 % nebulizer solution [Pharmacy Med Name: IPRATROPIUM BR 0.02% SOLN]) Social History Tobacco Use Types Packs/Day Years [...] st Contact Info) Description 09/06/2024 12:30 PM WARD SECRETARY Telemedicine [facility] [address] [facility] [place] [address] Mattie Huertas MD [address] [place] [address] documented as of this encounter Visit Diagnoses Diagnosis Chronic respiratory failure with hypoxia and hypercapnia (HRC) documented in this encounter Care Teams Director Of Women'S Services Relationship Specialty Start Date End Date Mattie Huertas MD [address] [place] [address] PCP - General Family Practice 07/04/23 documented as of this encounter
--- OUTSIDE RECORDS SUMMARY | 2024-08-23 16:41 | XMS_ITS | Encounter Summary ---
Author Organization [employer] [facility] Address [address] [place] [address] Care Team Providers Care Toe Former Stitchdowns Name Role Phone Mattie Huertas MD Primary Care Provider [phone] Reason for Visit * Reason Comments Prior Authorization For Medication LEVAL BUTEROL 0.63% MG/3 ML CHIKA Encounter Details Date Type Department Care Team (Late st Contact Info) Description 07/08/[address] [phone] Mattie Huertas MD [address] [place] [id number] Prior Authorization For Medication (LEVALBUTEROL 0.63% MG/3 ML CHIKA) Social History Tobacco Use Types Packs/Day Years Used Date Smoking Tobacco: Never Smokeless Tobacco: Never Alcohol Use Standard Drinks/Week Comments Never 0 (1 standard drink = 0.6 oz pur e alcohol) Sex and Gender Information Value Date Recorded Sex Assigned at Not on file Gender Identity Not on file Sexual Orientation Not on file documented as of this encounter Nursing Notes * Earline Mae - 07/08/2024 11:00 AM CST Prior authorization has been initiated for LEVALBUTEROL 0.63% MG/3 ML CHIKA (not in Medication Management list). ALMAN documented in this encounter Plan of Treatment Upcoming Encounters Date Type Department Care Team (Late st Contact Info) Description 09/06/2024 12:30 PM SIGNALMAN Telemedicine [facility] [address] [facility] [place] [address] Mattie Huertas MD [address] [place] [address] documented as of this encounter Visit Diagnoses Not on filedocumented in this encounter Care Teams Toe Former Stitchdowns Relationship Specialty Start Date End Date Mattie Huertas MD [address] [place] [address] PCP - General Family Practice 07/04/23 documented as of this encounter
--- OUTSIDE RECORDS SUMMARY | 2024-08-23 16:41 | XMS_ITS | Encounter Summary ---
Author Organization [employer] Address [address] [place] [address] Care Team Providers Care Reel Hooker Name Role Phone Katelyn Mendez MD Primary Care Provider Reason for Referral * Medication Prior Authorization - Authorized Specialty Diagnoses / Procedures Referred By Marvin payne Referred To Contact Diagnoses Chronic respiratory failure with hypoxia and hypercapnia (HRC) Katelyn Mendez MD [facility] [place] [address] Referral ID Status Reason Start Date Expiration Date V isits Requested Visits Authorized [id number] Authorized 06/28/2024 06/28/2025 1 1 Reason for Visit * Reason Onset Date Comments Refill 06/11/2024 levalbuterol (XO PENEX) 0.63 MG/3ML nebulizer solution Encounter Details Date Type Department Care Team (Late st Contact Info) Description 06/11/2024 Refill [facility] [address] [place] [address] [place] [id number] Katelyn Mendez MD [address] [place] [address] [place] [address] Refill (levalbuterol (XOPENEX) 0.63 MG/3ML nebulizer solution) Social History Tobacco Use Types Packs/Day Years Used Date Smoking Tobacco: Never Smokeless Tobacco: Never Alcohol Use Standard Drinks/Week Comments Never 0 (1 standard drink = 0.6 oz pur e alcohol) Sex and Gender Information Value Date Recorded Sex Assigned at Not on file Gender Identity Not on file Sexual Orientation Not on file documented as of this encounter Nursing Notes * RonnalayaKendall Xrwcomm - 06/11/2024 4:07 PM CDT levalbuterol (XOPENEX) 0.63 MG/3ML nebulizer solution Medication started: 07/17/2019 Last ordered by KATELYN MENDEZ E: 01/20/2024 (143 days ago) QTY: 270, Refills: 2, Sig: inhale 3 ml (0.63 mg) every 8 hours as needed for wheezing. (unchanged) -> Refill x 3 months (until due for an office visit) -> Calculate the quantity and number of refills manually. Last qualifying visit: 08/24/2023 (with KATELYN MENDEZ) Next scheduled visit: [facility] Embedded Refills, Reference: [id number], 06/11/2024 4:07:45 PM CDT, Pool: CHRISTINA Refill Centralized Services - Primary Care [[id number]] ([id number]) ONAL FINANCIAL REPRESENTATIVE * Myke Castroillenochzard Xrwcomm - 06/11/2024 3:00 PM CDT The patient chart could not be locked at 06/11/2024 3:00 PM by [employer] in order to process thisrefill request. Please try re-routing to attempt to retry processing through [employer] ICK * Ade Richardson - 06/11/2024 2:58 PM CDT Medications - Refill Request Name of prescribing clinician: Katelyn Mendez MD Additional comments (related to the above concern): For this refill, patient would like it filled at the pharmacy listed in Medication Management. If there are questions regarding your request, what is your preferred method of communication? MyChart Is there anything else I can help you with today? documented in this encounter Plan of Treatment Upcoming Encounters Date Type Department Care Team (Late st Contact Info) Description 09/06/2024 12:30 PM PERSONAL FINANCIAL REPRESENTATIVE Telemedicine [facility] [address] [facility] [place] [phone] Katelyn Mendez MD [address] [place] [address] [place] [phone] documented as of this encounter Visit Diagnoses Diagnosis Chronic respiratory failure with hypoxia and hypercapnia (HRC) documented in this encounter Care Teams Reel Hooker Relationship Specialty Start Date End Date Katelyn Mendez MD [address] [place] [address] [place] [address] PCP - General Family Practice 07/04/23 documented as of this encounter
--- OUTSIDE RECORDS SUMMARY | 2024-08-23 16:41 | XMS_ITS | Encounter Summary ---
Author Organization [employer] Address [address] [place] [address] Care Team Providers Care Protective Signal Repairer Name Role Phone Mattie Huertas MD Primary Care Provider Reason for Visit * Reason Comments Refill NEXIUM 40 MG packet [Pharmacy Med Name: NEXIUM DR 40 MG PACKET] Encounter Details Date Type Department Care Team (Late st Contact Info) Description 08/01/[address] [phone] Mattie Huertas MD [address] [place] [phone] Refill (NEXIUM 40 MG packet [Pharmacy Med Name: NEXIUM DR 40 MG PACKET]) Social History Tobacco Use Types Packs/Day Years Used Date Smoking Tobacco: Never Smokeless Tobacco: Never Alcohol Use Standard Drinks/Week Comments Never 0 (1 standard drink = 0.6 oz pur e alcohol) Sex and Gender Information Value Date Recorded Sex Assigned at Not on file Gender Identity Not on file Sexual Orientation Not on file documented as of this encounter Nursing Notes * Monica Bird E - 08/10/2024 10:57 AM CST Medication Refill - Due for Visit Refill was approved for 90 day supply, patient is due to be seen in the next 90 days. Called patient, was: unable to reach patient. 1st call attempted. Left message to call back. My chart msg sent Scheduling Action: Patient needs to schedule an appointment in the next 3 months. If able to schedule, please document date of appointment. No further action is needed. ATAL INTENSIVE CARE NURSE * Tish Blancas RN - 08/03/2024 9:06 AM CST Further Assistance Needed on Refill from Manager Title Patient is due for Qualifying Visit &/or & lab(s). Medication has been refilled for 90 day supply. Patient is due for an Office/Video Visit in the next 90 days.. Call Patient and document using .MROVERDUE. After attempting to schedule patient: Close encounter. Refill has already been processed per standing order. Requested Prescriptions Pending Prescriptions Disp Refills NEXIUM 40 MG packet [Pharmacy Med Name: NEXIUM DR 40 MG PACKET] 180 Packet Si PACKET (40 MG) BY GT ROUTE TWO TIMES A DAY. ATAL INTENSIVE CARE NURSE documented in this encounter Plan of Treatment Upcoming Encounters Date Type Department Care Team (Late st Contact Info) Description 09/06/2024 12:30 PM NEONATAL INTENSIVE CARE NURSE Telemedicine [facility] [address] [facility] [place] [address] Mattie Huertas MD [address] [place] [address] [place] [phone] documented as of this encounter Visit Diagnoses Diagnosis Spina bifida with hydrocephalus, lumbar region (HRC) Spina bifida with hydrocephalus, lumbar region Seizure disorder (HRC) Unspecified epilepsy without mention of intractable epilepsy Gastroesophageal reflux disease, unspecified whether esophagitis present documented in this encounter Care Teams Protective Signal Repairer Relationship Specialty Start Date End Date Mattie Huertas MD [address] [place] [address] PCP - General Family Practice 07/04/23 documented as of this encounter
--- OUTSIDE RECORDS SUMMARY | 2024-08-23 16:41 | XMS_ITS | Encounter Summary ---
Author Organization [employer] Address [address] [place] [address] Care Team Providers Care Annealing Torch Operator Name Role Phone Katelyn Mendez MD Primary Care Provider [phone] Reason for Visit * Reason Comments Refill cyproheptadine (EDDY ACTIN) 4 MG tablet [Pharmacy Med Name: CYPROHEPTADINE 4 MG TABLET] Encounter Details Date Type Department Care Team (Late st Contact Info) Description 08/01/[address] [place] [phone] Katelyn Mendez MD [address] [place] [address] [place] [phone] Refill (cyproheptadine (PERIACTIN) 4 MG tablet [Pharmacy Med Name: CYPROHEPTADINE 4 MG TABLET]) Social History Tobacco Use Types Packs/Day Years Used Date Smoking Tobacco: Never Smokeless Tobacco: Never Alcohol Use Standard Drinks/Week Comments Never 0 (1 standard drink = 0.6 oz pur e alcohol) Sex and Gender Information Value Date Recorded Sex Assigned at Not on file Gender Identity Not on file Sexual Orientation Not on file documented as of this encounter Nursing Notes * Rl Castrogilberto Xrwcomm - 08/01/2024 2:27 PM CST cyproheptadine (PERIACTIN) 4 MG tablet [Pharmacy Med Name: CYPROHEPTADINE 4 MG TABLET] Medication started: 02/06/2020 Last ordered by KATELYN MENDEZ: 07/27/2023 (371 days ago) QTY: 270, Refills: 3, Sig: administer 4 mg into feeding tube three times a day. (unchanged) -> Medication cannot be delegated. Last qualifying visit: 08/24/2023 (with KATELYN MENDEZ) Next scheduled visit: [facility] Embedded Refills, Reference: [id number], 08/01/2024 2:27:40 PM Shade CHOUDHARYill Centralized Services - Primary Care [[id number]] ([id number]) SPRINKLER INSTALLER documented in this encounter Plan of Treatment Upcoming Encounters Date Type Department Care Team (Late st Contact Info) Description 09/06/2024 12:30 PM FIRE SPRINKLER INSTALLER Telemedicine [address] [place] [address] Katelyn Mendez MD [address] [place] [address] [place] [phone] documented as of this encounter Visit Diagnoses Not on filedocumented in this encounter Care Teams Annealing Torch Operator Relationship Specialty Start Date End Date Katelyn Mendez MD [address] [place] [address] PCP - General Family Practice 07/04/23 documented as of this encounter
--- OUTSIDE RECORDS SUMMARY | 2024-08-23 16:41 | XMS_ITS | Encounter Summary ---
Author Organization [facility] Address [address] [place] [address] Care Team Providers Care Staffing Program Manager Name Role Phone Mattie Huertas MD Primary Care Provider Encounter Details Date Type Department Care Team (Late st Contact Info) Description 08/10/2024 E-Visit [address] [address] Mychart, [facility] [place] [address] Social History Tobacco Use Types Packs/Day Years [...] st Contact Info) Description 09/06/2024 12:30 PM MOSAIC TILER Telemedicine [address] [place] [address] Mattie Huertas MD [address] [place] [address] [place] [address] documented as of this encounter Visit Diagnoses Not on filedocumented in this encounter Care Teams Staffing Program Manager Relationship Specialty Start Date End Date Mattie Huertas MD [address] [place] [address] PCP - General Family Practice 07/04/23 documented as of this encounter
--- NOTE | 2024-08-24 08:30 | CRLHL7_ITS ---
For Patients: As a result of the Cures Act, medical imaging exams and procedure reports are released immediately into your electronic medical record. You may view this report before your referring provider. If you have questions, please contact your health care provider. Indication: osteomyelitis Technique: Three views pelvis and lateral view sacrum Comparison: None Findings: Large sacral ulcer appears to be present. The sacrum is intact without acute cortical destruction or periostitis involving the sacrum/coccyx. No fracture is present regarding the sacrum/lower lumbar spine. 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 Chronic changes to the left greater trochanter with a chronic appearing displaced fracture fragment measuring 3.3 cm. Postop changes to the abdomen with shunt tubing present in the midline. Impression: No evidence of acute sacral/coccygeal osteomyelitis. Chronic changes to the left greater trochanter and right hip. Further evaluation with CT could be considered if concern remains for osteomyelitis. Dictated by Ney Auguste MD @ 08/24/2024 9:33:25 AM (Electronically Signed)
[2024-08-24 08:36] LABS: Basophils Absolute Auto 0.03 K/uL (0.00-0.30); Basophils Percent Auto 0.5 % (0.0-3.0); Eosinophils Absolute Auto 0.16 K/uL (0.00-0.50); Eosinophils Percent Auto 2.6 % (0.0-7.0); Hematocrit 34.9 % (33.0-51.0); Hemoglobin* 11.3 gm/dL (12.0-16.0); Lymphocytes Absolute Auto 1.49 K/uL (0.90-2.90); Mean Corpuscular HGB Conc 32 gm/dL (32-36); Mean Corpuscular Hemoglobin 29 pg (26-34); Mean Corpuscular Volume 89 fL (80-100); Monocytes Percent Auto 5.5 % (0.0-11.0); Neutrophils Absolute Auto 4.19 K/uL (1.7-7.0); Neutrophils Percent Auto 67.4 % (42.0-72.0); Platelet Count* 271 K/uL (140-440); Red Blood Count 3.92 m/uL (4.00-5.20); White Blood Count* 6.21 K/uL (4.50-11.00)
[2024-08-24 08:43] LABS: Slide Review Reflex No
[2024-08-24 11:14] LABS: Erythrocyte SedimentationRate* 90 mm/hr (2-20)
== END 2024-08-24 07:55 | disposition home or self-care (01) ==
PROVIDERS: Visit Provider Nurse Practitioner Family
DX: M86.9 Osteomyelitis, unspecified (principal)
CPT/HCPCS: 36415; 72190; 85025; 85651

== ENCOUNTER 2024-08-29 07:47 | Outpatient (CLI) | payer BC, MEDICAID, SELFPAY | END 2024-08-29 07:48 | disposition home or self-care (01) | LOC: WOUND 07:48 | PROVIDERS: Visit Provider Nurse Practitioner Family | DX: L89.324 Pressure ulcer of left buttock, stage 4 (principal); L89.314 Pressure ulcer of right buttock, stage 4; Q05.4 Unspecified spina bifida with hydrocephalus; G82.20 Paraplegia, unspecified; Z99.3 Dependence on wheelchair | CPT/HCPCS: 11043; 97605 ==

== ENCOUNTER 2024-09-12 07:54 | Outpatient (CLI) | payer BC, MEDICAID, SELFPAY | END 2024-09-12 07:55 | disposition home or self-care (01) | PROVIDERS: Visit Provider Nurse Practitioner Family | DX: L89.314 Pressure ulcer of right buttock, stage 4 (principal); L89.324 Pressure ulcer of left buttock, stage 4; Q05.4 Unspecified spina bifida with hydrocephalus; G82.20 Paraplegia, unspecified; Z99.3 Dependence on wheelchair | CPT/HCPCS: 11042; 97605 ==

== ENCOUNTER 2024-09-19 07:46 | Outpatient (CLI) | payer BC, MEDICAID, SELFPAY | END 2024-09-19 07:47 | disposition home or self-care (01) | PROVIDERS: Visit Provider Nurse Practitioner Family | DX: L89.324 Pressure ulcer of left buttock, stage 4 (principal); L89.314 Pressure ulcer of right buttock, stage 4; Q05.4 Unspecified spina bifida with hydrocephalus; G82.20 Paraplegia, unspecified; Z99.3 Dependence on wheelchair | CPT/HCPCS: 11043; 97605 ==

== ENCOUNTER 2024-09-26 07:50 | Outpatient (CLI) | payer BC, MEDICAID, SELFPAY | END 2024-09-26 07:51 | disposition home or self-care (01) | LOC: WOUND 07:50 | PROVIDERS: Visit Provider Nurse Practitioner Family | DX: L89.324 Pressure ulcer of left buttock, stage 4 (principal); L89.314 Pressure ulcer of right buttock, stage 4; Q05.4 Unspecified spina bifida with hydrocephalus; G82.20 Paraplegia, unspecified; Z99.3 Dependence on wheelchair | CPT/HCPCS: 11042; 97605 ==

== ENCOUNTER 2024-10-03 07:48 | Outpatient (CLI) | payer BC, MEDICAID, SELFPAY | END 2024-10-03 07:49 | disposition home or self-care (01) | LOC: WOUND 07:48 | PROVIDERS: Visit Provider Nurse Practitioner Family | DX: L89.314 Pressure ulcer of right buttock, stage 4 (principal); Q05.4 Unspecified spina bifida with hydrocephalus; G82.20 Paraplegia, unspecified; Z99.3 Dependence on wheelchair; L89.324 Pressure ulcer of left buttock, stage 4 | CPT/HCPCS: 11043; 97605 ==

== ENCOUNTER 2024-10-10 07:39 | Outpatient (CLI) | payer BC, MEDICAID, SELFPAY | END 2024-10-10 07:40 | disposition home or self-care (01) | LOC: WOUND 07:39 | PROVIDERS: Visit Provider Nurse Practitioner Family | DX: L89.324 Pressure ulcer of left buttock, stage 4 (principal); L89.314 Pressure ulcer of right buttock, stage 4; Q05.4 Unspecified spina bifida with hydrocephalus; G82.20 Paraplegia, unspecified; Z99.3 Dependence on wheelchair | CPT/HCPCS: 11043; 97605 ==

== ENCOUNTER 2024-10-17 07:46 | Outpatient (CLI) | payer BC, MEDICAID, SELFPAY | END 2024-10-17 07:47 | disposition home or self-care (01) | LOC: WOUND 07:46 | PROVIDERS: Visit Provider Nurse Practitioner Family | DX: L89.324 Pressure ulcer of left buttock, stage 4 (principal); L89.314 Pressure ulcer of right buttock, stage 4; Q05.4 Unspecified spina bifida with hydrocephalus; G82.20 Paraplegia, unspecified; Z99.3 Dependence on wheelchair | CPT/HCPCS: 11043 ==

== ENCOUNTER 2024-10-31 07:55 | Outpatient (CLI) | payer BC, MEDICAID, SELFPAY | END 2024-10-31 07:56 | disposition home or self-care (01) | LOC: WOUND 07:55 | PROVIDERS: Visit Provider Nurse Practitioner Family | DX: L89.314 Pressure ulcer of right buttock, stage 4 (principal); G82.20 Paraplegia, unspecified; Q05.4 Unspecified spina bifida with hydrocephalus; Z99.3 Dependence on wheelchair; L89.324 Pressure ulcer of left buttock, stage 4 | CPT/HCPCS: 11042 ==

== ENCOUNTER 2024-11-14 07:50 | Outpatient (CLI) | payer BC, MEDICAID, SELFPAY | END 2024-11-14 07:51 | disposition home or self-care (01) | LOC: WOUND 07:50 | PROVIDERS: Visit Provider Family Medicine | DX: L89.324 Pressure ulcer of left buttock, stage 4 (principal); L89.314 Pressure ulcer of right buttock, stage 4; G82.20 Paraplegia, unspecified; Z99.3 Dependence on wheelchair | CPT/HCPCS: 11042 ==

== ENCOUNTER 2024-11-28 07:53 | Outpatient (CLI) | payer BC, MEDICAID, SELFPAY | END 2024-11-28 07:54 | disposition home or self-care (01) | LOC: WOUND 07:53 | PROVIDERS: Visit Provider Nurse Practitioner Family | DX: L89.324 Pressure ulcer of left buttock, stage 4 (principal); L89.314 Pressure ulcer of right buttock, stage 4; Q05.4 Unspecified spina bifida with hydrocephalus; G82.20 Paraplegia, unspecified; Z99.3 Dependence on wheelchair | CPT/HCPCS: 11042; 97597 ==

== ENCOUNTER 2024-12-26 07:45 | Outpatient (CLI) | payer BC, MEDICAID, SELFPAY | END 2024-12-26 07:46 | disposition home or self-care (01) | LOC: WOUND 07:45 | PROVIDERS: Visit Provider Nurse Practitioner Family | DX: L89.324 Pressure ulcer of left buttock, stage 4 (principal); L89.314 Pressure ulcer of right buttock, stage 4; Q05.4 Unspecified spina bifida with hydrocephalus; G82.20 Paraplegia, unspecified; Z99.3 Dependence on wheelchair; Z93.0 Tracheostomy status | CPT/HCPCS: 11042 ==

== ENCOUNTER 2025-01-09 07:53 | Outpatient (CLI) | payer BC, MEDICAID, SELFPAY | END 2025-01-09 07:54 | disposition home or self-care (01) | LOC: WOUND 07:53 | PROVIDERS: Visit Provider Nurse Practitioner Family | DX: L89.324 Pressure ulcer of left buttock, stage 4 (principal); Q05.4 Unspecified spina bifida with hydrocephalus; G82.20 Paraplegia, unspecified; Z99.3 Dependence on wheelchair | CPT/HCPCS: 11042 ==

== ENCOUNTER 2025-01-23 07:52 | Outpatient (CLI) | payer BC, MEDICAID, SELFPAY | END 2025-01-23 07:53 | disposition home or self-care (01) | LOC: WOUND 07:52 | PROVIDERS: Visit Provider Nurse Practitioner Family | DX: L89.324 Pressure ulcer of left buttock, stage 4 (principal); G82.20 Paraplegia, unspecified; Z99.3 Dependence on wheelchair | CPT/HCPCS: 11042 ==

== ENCOUNTER 2025-02-20 07:46 | Outpatient (CLI) | payer BC, MEDICAID, SELFPAY | END 2025-02-20 07:47 | disposition home or self-care (01) | LOC: WOUND 07:47 | PROVIDERS: Visit Provider Physician Assistant | DX: L89.324 Pressure ulcer of left buttock, stage 4 (principal); G82.20 Paraplegia, unspecified; Q05.4 Unspecified spina bifida with hydrocephalus; Z99.3 Dependence on wheelchair | CPT/HCPCS: 97597 ==

== ENCOUNTER 2025-03-20 08:06 | Outpatient (CLI) | payer BC, MEDICAID, SELFPAY | END 2025-03-20 08:07 | disposition home or self-care (01) | LOC: WOUND 08:06 | PROVIDERS: Visit Provider Nurse Practitioner Family | DX: L89.324 Pressure ulcer of left buttock, stage 4 (principal); G82.20 Paraplegia, unspecified; Z99.3 Dependence on wheelchair | CPT/HCPCS: 11042 ==

== ENCOUNTER 2025-04-03 07:51 | Outpatient (CLI) | payer BC, MEDICAID, SELFPAY | END 2025-04-03 07:52 | disposition home or self-care (01) | LOC: WOUND 07:51 | PROVIDERS: Visit Provider Nurse Practitioner Family | DX: L89.324 Pressure ulcer of left buttock, stage 4 (principal); Q05.4 Unspecified spina bifida with hydrocephalus; G82.20 Paraplegia, unspecified; N31.8 Other neuromuscular dysfunction of bladder; Z99.3 Dependence on wheelchair; Z93.3 Colostomy status | CPT/HCPCS: 11042 ==

== ENCOUNTER 2025-05-01 07:46 | Outpatient (CLI) | payer BC, MEDICAID, SELFPAY | END 2025-05-01 07:47 | disposition home or self-care (01) | LOC: WOUND 07:46 | PROVIDERS: Visit Provider Nurse Practitioner Family | DX: L89.324 Pressure ulcer of left buttock, stage 4 (principal); G82.20 Paraplegia, unspecified; N31.8 Other neuromuscular dysfunction of bladder; Z99.3 Dependence on wheelchair; Z93.3 Colostomy status; Z93.0 Tracheostomy status | CPT/HCPCS: 11042 ==

== ENCOUNTER 2025-05-15 07:51 | Outpatient (CLI) | payer BC, MEDICAID, SELFPAY | END 2025-05-15 07:52 | disposition home or self-care (01) | LOC: WOUND 07:51 | PROVIDERS: Visit Provider Nurse Practitioner Family | DX: Q05.4 Unspecified spina bifida with hydrocephalus (principal); L89.324 Pressure ulcer of left buttock, stage 4; G82.20 Paraplegia, unspecified; Z99.3 Dependence on wheelchair; K59.2 Neurogenic bowel, not elsewhere classified; Z93.3 Colostomy status; Z93.0 Tracheostomy status | CPT/HCPCS: 17250; G0463 ==

== ENCOUNTER 2025-05-29 07:36 | Outpatient (CLI) | payer BC, MEDICAID, SELFPAY | END 2025-05-29 07:37 | disposition home or self-care (01) | LOC: WOUND 07:36 | PROVIDERS: Visit Provider Nurse Practitioner Family | DX: Q05.4 Unspecified spina bifida with hydrocephalus (principal); L89.324 Pressure ulcer of left buttock, stage 4; G82.20 Paraplegia, unspecified; Z99.3 Dependence on wheelchair; K59.2 Neurogenic bowel, not elsewhere classified; Z93.3 Colostomy status; Z93.0 Tracheostomy status | CPT/HCPCS: 11042 ==

== ENCOUNTER 2025-06-12 07:51 | Outpatient (CLI) | payer BC, MEDICAID, SELFPAY | END 2025-06-12 07:52 | disposition home or self-care (01) | LOC: WOUND 07:51 | PROVIDERS: Visit Provider Nurse Practitioner Family | DX: Q05.4 Unspecified spina bifida with hydrocephalus (principal); L89.324 Pressure ulcer of left buttock, stage 4; G82.20 Paraplegia, unspecified; Z99.3 Dependence on wheelchair; Z93.3 Colostomy status; K59.2 Neurogenic bowel, not elsewhere classified; Z93.0 Tracheostomy status | CPT/HCPCS: 11042 ==

== ENCOUNTER 2025-07-10 07:44 | Outpatient (CLI) | payer BC, MEDICAID, SELFPAY | END 2025-07-10 07:45 | disposition home or self-care (01) | LOC: WOUND 07:44 | PROVIDERS: Visit Provider Nurse Practitioner Family | DX: L89.324 Pressure ulcer of left buttock, stage 4 (principal); Q05.4 Unspecified spina bifida with hydrocephalus; G82.20 Paraplegia, unspecified; Z99.3 Dependence on wheelchair; Z93.0 Tracheostomy status; Z93.3 Colostomy status | CPT/HCPCS: 11042 ==